=== PATIENT | female | born 1945 | race Caucasian/White ===

== ENCOUNTER → 2021-11-17 | Outpatient (CLI) | payer MEDICARE, OTHER ==
[~2021-11-17] MED LIST: ACET65TA; CLAR5CHW; COLA100C2; GLUC1000; PERC5TAB8; PRIL20CA; VYTO10TA5
== END ==
LOC: M RAD 13:14
PROVIDERS: ATTEND Nurse Practitioner Family
DX: R91.8 Other nonspecific abnormal finding of lung field (principal); Z87.891 Personal history of nicotine dependence

== ENCOUNTER → 2023-06-07 | Outpatient (CLI) | payer MEDICARE, OTHER | LOC: M SOG 07:58 | PROVIDERS: ATTEND Orthopaedic Surgery | DX: M25.511 Pain in right shoulder (principal); M25.512 Pain in left shoulder ==

== ENCOUNTER 2023-11-21 07:51 | Day surgery (SDC) | payer MEDICARE, OTHER ==
[~2023-11-21] VITALS: Ht 167.6 cm; Wt 81.6 kg
[~2023-11-21 07:51] MED LIST changes: +ACET650T61 PO; +ALIG4CAP PO; +AMLO1TAB24 PO; +ASPI-226 PO; +BUPR1TAB56 PO; +CINN500C12 PO; +DICL75TA PO; +DULO1CAP5 PO; +EZET10TA21 PO; +GABA-1171 PO; +HYDR-3490 PO; +LORA-930 PO; +LOSA50TA28 PO; +METF-838 PO; +METO1TAB87 PO; +MULTTAB61 PO; +OMEP-173 PO; +REFR0.1D; +ZOLP10TA2 PO; +[UNRECOGNIZED DRUG - OTHER]
[2023-11-21] MEDS ORDERED: LR 1,000 ML IV SCH ×2 (08:35→11:45)
[2023-11-21] MEDS ORDERED: MIDAZOLAM INJ 2MG/2ML VIAL As Ordered ONE (08:59)
[2023-11-21] MEDS ORDERED: fentaNYL 100 MCG/2 ML INJECTION As Ordered ONE (08:59)
[2023-11-21] MEDS ORDERED: propofoL 200 MG/20 ML VIAL As Ordered ONE (09:00)
[2023-11-21] MEDS ORDERED: LIDOCAINE 2% 100MG/5ML SDV (FOR ANES.) As Ordered ONE (09:00)
[2023-11-21] MEDS ORDERED: ONDANSETRON 4MG 2ML VIAL As Ordered ONE (09:00)
[2023-11-21] MEDS: ceFAZolin 2 GM/D5W 50 ML IV BAG As Ordered ONE (10:45)
[2023-11-21] MEDS ORDERED: ONDANSETRON 4MG 2ML VIAL IV PRN (11:45)
[2023-11-21] MEDS ORDERED: diphenhydrAMINE 50MG/ML VIAL IV PRN (11:45)
[2023-11-21] MEDS ORDERED: fentaNYL 100 MCG/2 ML INJECTION IV PRN (11:45)
[2023-11-21] MEDS ORDERED: METOCLOPRAMIDE INJ 10MG/2ML VIAL IV PRN (11:45)
[2023-11-21 12:12] VITALS: BP 173/79; TEMP 96.9; O2SAT 96
== END 2023-11-21 12:15 | disposition home or self-care (01) ==
LOC: M SDC 07:51
PROVIDERS: ATTEND Orthopaedic Surgery
DX: G56.01 Carpal tunnel syndrome, right upper limb (principal); I10 Essential (primary) hypertension; E11.9 Type 2 diabetes mellitus without complications; E78.00 Pure hypercholesterolemia, unspecified; G47.30 Sleep apnea, unspecified; K21.9 Gastro-esophageal reflux disease without esophagitis; Z79.899 Other long term (current) drug therapy; Z79.82 Long term (current) use of aspirin; Z79.84 Long term (current) use of oral hypoglycemic drugs; R32 Unspecified urinary incontinence; Z85.828 Personal history of other malignant neoplasm of skin; Z90.710 Acquired absence of both cervix and uterus; Z91.013 Allergy to seafood; Z86.14 Personal history of Methicillin resistant Staphylococcus aureus infection
CPT/HCPCS: 64721; J0665; J0690; J1100; J2250; J2405; J3010

== ENCOUNTER → 2024-02-12 | Outpatient (CLI) | payer MEDICARE, OTHER | LOC: M SOG 07:55 | PROVIDERS: ATTEND Orthopaedic Surgery | DX: M54.2 Cervicalgia (principal); M25.532 Pain in left wrist ==

== ENCOUNTER → 2024-05-13 | Outpatient (CLI) | payer MEDICARE, OTHER ==
[~2024-05-13] MED LIST changes: -ALIG4CAP PO; +ALIG4CAP3 PO
== END ==
LOC: M SOG 08:00
PROVIDERS: ATTEND Orthopaedic Surgery
DX: M17.0 Bilateral primary osteoarthritis of knee (principal)